=== PATIENT | male | born 1945 | race Caucasian/White ===

== ENCOUNTER 2016-12-15 15:14 | Outpatient (CLI) | payer MEDICARE, OTHER | END 2016-12-15 15:15 | disposition home or self-care (01) | DX: M06.841 Other specified rheumatoid arthritis, right hand (principal); M25.521 Pain in right elbow; M79.631 Pain in right forearm ==

== ENCOUNTER 2017-09-12 12:26 | Outpatient (CLI) | payer MEDICARE, OTHER ==
--- NOTE | 2017-09-12 21:46 | XRAY Report ---
DATE OF SERVICE: 09/12/2017 THREE VIEW BILATERAL KNEES: 09/12/2017 CLINICAL INDICATION: Pain. AP, lateral, sunrise views of the bilateral knees demonstrate minimal osteoarthritis, with tiny osteo phytes. There is no evidence of fracture or dislocation. No effusion is present on either side. IMPRESSION: Minimal osteoarthritis. TD: 09/12/2017 22:44
--- NOTE | 2017-09-12 21:46 | XRAY Report ---
DATE OF SERVICE: 09/12/2017 BILATERAL HIPS AND PELVIS: 09/12/2017 CLINICAL INDICATION: Bilateral pain. Frontal view of the hips and pelvis, and bilateral frogleg lateral views of the hips demonstrate mild osteoarthritis, with small osteophytes. There is no evidence of acute fracture or dislocation. No r adiopaque foreign body is seen in the soft tissues. IMPRESSION: Mild osteoarthritis. TD: 09/12/2017 22:43
--- NOTE | 2017-09-12 21:46 | XRAY Report ---
DATE OF SERVICE: 09/12/2017 THREE VIEW THORACIC SPINE: 09/12/2017 CLINICAL INDICATION: Pain. AP, lateral, swimmer's views of the thoracic spine demonstrate mild degenerative disk disease. There is no evidence of compression fracture or subluxation. No paraspinal hematoma is seen. IMPRESSION: Mild degenerative disk disease. TD: 09/12/2017 22:42
== END 2017-09-12 12:27 | disposition home or self-care (01) ==
LOC: DI 12:26
PROVIDERS: ATTEND Nurse Practitioner Family
DX: M51.34 Other intervertebral disc degeneration, thoracic region (principal); M16.0 Bilateral primary osteoarthritis of hip; M17.0 Bilateral primary osteoarthritis of knee
CPT/HCPCS: 72070; 73521

== ENCOUNTER 2017-11-08 16:01 | Outpatient (CLI) | payer MEDICARE ==
--- NOTE | 2017-11-09 08:59 | CT Report ---
EXAM: CT HEAD EXAM DATE: 11/08/2017 04:18 PM. 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 COMPARISON: None. TECHNIQUE: Multiaxial CT images were obtained from the foramen magnum to the vertex. Reformats: Coron al. IV contrast: None. In accordance with CT protocol optimization, one or more of the following dose reduction techniques w ere utilized for this exam: automated exposure control, adjustment of mA and/or KV based on patient s ize, or use of iterative reconstructive technique. FINDINGS: Parenchyma: Low-attenuation encephalomalacia from old infarct involving the left lentiform nucleus an d small amount of the posterior limb of the internal capsule, as well as extending to the monson radi amanda. Small amount of low-attenuation in the periventricular white matter. No acute hemorrhage, mass e ffect, or midline shift. No evidence of diffuse parenchymal volume loss. Aaron-white differentiation a ppears maintained. Extraaxial Spaces: No acute extra-axial collection. Evidence of diffuse parenchymal volume loss area in Ventricles: Mild exvacuo dilation of the left lateral ventricle. Sinuses and Orbits: Partially opacified right maxillary sinus is only partially visualized, otherwise paranasal sinuses appear fairly clear. Bones: No depressed skull fracture. Other: None. IMPRESSION: 1. No acute intracranial abnormality identified. Probable age-related diffuse parenchymal volume loss and chronic microvascular ischemic change, as well as old left-sided infarct, as described. 2. Partially opacified right maxillary sinus [facility] Referring Provider Line: [phone] SITE ID: [id number]
== END 2017-11-08 16:02 | disposition home or self-care (01) ==
LOC: DI 16:01
PROVIDERS: ATTEND Nurse Practitioner Family
DX: R51 Headache (principal); G81.91 Hemiplegia, unspecified affecting right dominant side; G44.321 Chronic post-traumatic headache, intractable; Z86.73 Personal history of transient ischemic attack (TIA), and cerebral infarction without residual deficits
CPT/HCPCS: 70450

== ENCOUNTER 2018-04-27 11:05 | Outpatient (CLI) | payer MEDICARE, OTHER | END 2018-04-27 11:06 | disposition short-term general hospital (02) | LOC: EMS 11:05 | PROVIDERS: ATTEND Surgery | DX: R26.2 Difficulty in walking, not elsewhere classified (principal); R42 Dizziness and giddiness; R53.1 Weakness; R51 Headache | CPT/HCPCS: A0425; A0427 ==

== ENCOUNTER 2018-09-27 10:16 | Outpatient (CLI) | payer MEDICARE, OTHER | END 2018-09-27 10:17 | disposition home or self-care (01) | LOC: DI 10:16 | PROVIDERS: ATTEND Internal Medicine | DX: Z53.9 Procedure and treatment not carried out, unspecified reason (principal) ==

== ENCOUNTER 2018-09-27 11:36 | Emergency (ER) | payer MEDICARE, OTHER ==
--- NOTE | 2018-09-27 11:55 | ED Physician Documentation ---
PD HPI FOCAL NEURO - Stated complaint Stated Complaint: R FACIAL DROOP - Chief complaint Chief Complaint: Neuro - History obtained from History obtained from: Patient, Family (sig other/caregiver.) - History of Present Illness Timing - onset: How many days ago (1-2 days of some increase in his baseline facial droop, and some perhaps weaker on right arm and leg, from prior CVA. Had had a chest pain episode month ago or so, without recurrence, but getting outpt adenosine stress test today in follow up of that. Tech and provider for the stress test noted him to have right facial droop, and wasn't able to articulate well that it is pre-existing, so test diverted and he was brought to the ER. Here he is able to articulate better that is from prior CVA and then his SO arrived and said was prior deficit and it does get worse when he has other stresses/infections/ etc. 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 Has had some facial rash recurrently and is broken out more this week. Has had prior various treatments and sees campus recruiting coordinator for it.) Severity of deficit: Mild Weakness: Face, Arm, Leg, Right Associated symptoms: No: Headache, Nausea / vomiting, Syncope Contributing factors: negative: Anticoagulated, Vascular dz Baseline status: positive: Cane, Other (some slow speech and memory at times.) Similar symptoms before: Diagnosis (prior CVA and gets increased weakness with illness or such at times in the past.) Review of Systems Constitutional: denies: Fever, Chills Nose: denies: Rhinorrhea / runny nose, Congestion Throat: denies: Sore throat Cardiac: denies: Chest pain / pressure, Palpitations Respiratory: denies: Dyspnea, Cough GI: denies: Abdominal Pain, Nausea, Vomiting, Diarrhea : denies: Dysuria, Frequency Skin: reports: Rash (facial) Neurologic: reports: Focal weakness (right face/arm/leg), Difficulty speaking (some expressive aphasia, mild to moderate) Immunocompromised: denies: Immunocompromised, Chemotherapy PD PAST MEDICAL HISTORY - Past Medical History Cardiovascular: Atrial fibrillation Respiratory: None Endocrine/Autoimmune: None GI: None : None HEENT: None Psych: None Musculoskeletal: None Derm: None - Past Surgical History Past Surgical History: Yes HEENT: Tonsil/Adenoidectomy - Present Medications Home Medications: Ambulatory Orders Medication Instructions Recorded Confirmed Multivitamin [Multivitamins] 01/06/13 01/07/13 Aspirin Chewable [[place] 81 mg PO DAILY 09/19/13 09/19/13 Aspirin] Ca Cmb No.1/Vit D3/B-6/FA/B12 2 each PO DAILY 09/19/13 09/19/13 [Vitamin D3 1,000 Unit Tablet] - Allergies Allergies/Adverse Reactions: Allergies Allergy/AdvReac Type Severity Reaction Status Date / Time No Known Drug Allergies Allergy Verified 09/19/13 12:13 - Living Situation Living Situation: reports: With spouse/s.o. Living Arrangement: reports: At home - Social History Does the pt smoke?: No Smoking Status: Never smoker Does the pt drink ETOH?: No Does the pt have substance abuse?: No - Immunizations Immunizations are current?: Yes - POLST Patient has POLST: No PD ED PE NORMAL - Vitals Vital signs reviewed: Yes - General General: Alert and oriented X 3, No acute distress, Well developed/nourished - HEENT HEENT: Ears normal, Pharynx benign - Neck Neck: Supple, no meningeal sign, No adenopathy - Cardiac Cardiac: RRR, No murmur - Respiratory Respiratory: No respiratory distress, Clear bilaterally - Abdomen Abdomen: Soft, Non tender - Male Male : Deferred - Rectal Rectal: Deferred - Back Back: No CVA TTP - Derm Derm: Normal color, Warm and dry, Other (facial rash on forehead and around cheeks, superficial redness and slight scaling in places, with some excoriations c/w scratching of the skin. No bacterial appearance per se.) - Extremities Extremities: No tenderness to palpate, No edema, No calf tenderness / cord - Neuro Neuro: Alert and oriented X 3. No: No motor deficit (right face, arm, leg weakness with supportive brace right ankle. No rash nor sores noted from the brace. ), Normal speech (some mild expressive aphasia) Eye Opening: Spontaneous Motor: Obeys Commands Verbal: Oriented GCS Score: 15 Results - Vitals Vitals: Vital Signs - 24 hr 09/27/18 09/27/18 09/27/18 11:43 12:10 14:00 Temperature 36.7 C Heart Rate 62 55 L 57 L Respiratory 16 24 16 Rate Blood Pressure 157/77 H 138/46 H 152/83 H O2 Saturation 96 96 100 Oxygen O2 Source Room air - Labs Labs: Laboratory Tests 09/27/18 09/27/18 09/27/18 12:55 13:22 13:22 WBC 7.5 RBC 4.59 L Hgb 14.6 Hct 41.6 L MCV 90.5 MCH 31.8 H MCHC 35.2 RDW 13.3 Plt Count 250 MPV 6.5 L Neut # (Auto) 4.5 Lymph # (Auto) 2.0 [place] # (Auto) 0.6 Eos # (Auto) 0.3 Baso # (Auto) 0.1 Absolute Nucleated RBC 0.00 Nucleated RBC % 0.0 ESR Sodium 140 Potassium 4.4 Chloride 107 Carbon Dioxide 28 Anion Gap 5.0 L BUN 15 Creatinine 0.8 Estimated GFR (MDRD) 94 Glucose 97 Calcium 9.1 Magnesium 2.1 Total Bilirubin 1.0 AST 22 ALT 16 Alkaline Phosphatase 51 Total Protein 6.6 L Albumin 3.7 Globulin 2.9 Albumin/Globulin Ratio 1.3 Lipase 33 Urine Color YELLOW Urine Clarity CLEAR Urine pH 7.5 Ur Specific [place] 1.020 Urine Protein NEGATIVE Urine Glucose (UA) NEGATIVE Urine Ketones NEGATIVE Urine Occult Blood NEGATIVE Urine Nitrite NEGATIVE Urine Bilirubin NEGATIVE Urine Urobilinogen 0.2 (NORMAL) Ur Leukocyte Esterase NEGATIVE Ur Microscopic Review NOT INDICATED Urine Culture Comments NOT INDICATED 09/27/18 13:22 WBC RBC Hgb Hct MCV MCH MCHC RDW Plt Count MPV Neut # (Auto) Lymph # (Auto) [place] # (Auto) Eos # (Auto) Baso # (Auto) Absolute Nucleated RBC Nucleated RBC % ESR 5 Sodium Potassium Chloride Carbon Dioxide Anion Gap BUN Creatinine Estimated GFR (MDRD) Glucose Calcium Magnesium Total Bilirubin AST ALT Alkaline Phosphatase Total Protein Albumin Globulin Albumin/Globulin Ratio Lipase Urine Color Urine Clarity Urine pH Ur Specific [place] Urine Protein Urine Glucose (UA) Urine Ketones Urine Occult Blood Urine Nitrite Urine Bilirubin Urine Urobilinogen Ur Leukocyte Esterase Ur Microscopic Review Urine Culture Comments - Rads (name of study) head CT Radiology: Prelim report reviewed (prior left basal gnaglia infarct. No new findings. No fleeing nor focal swelling. ) PD MEDICAL DECISION MAKING - ED course Complexity details: considered differential (no obvious signs of other infections. Has facial rash that looks like possible rosacea (though SO says it has not had clear DX and has gotten treated with various abx and lotions in the past without improvement)), d/w patient Departure - Departure Disposition: 01 Home, Self Care Clinical Impression: Right sided weakness, Facial droop Condition: Stable Record reviewed to determine appropriate education?: Yes Follow-Up: Yamil Romero MD [Primary Care Provider] - Comments: Your head CT appears no worse than usual with the prior stroke showing but no acute findings. Your basic blood count and urine test are normal. Not sure the cause of the flaring of your prior stroke symptoms with the increased facial droop. Follow-up with the eye doctor this afternoon as planned. It does not look like an obvious pinkeye or infection to me at this point. Recheck if persistent worsening symptoms. He will have to reschedule on the stress test through your primary care. Discharge Date/Time: 09/27/18 14:04
--- NOTE | 2018-09-27 12:55 | CT Report ---
Reason: increased facial droop over baseline Procedure Date: 09/27/2018 Accession Number: [id number] / [id number] Procedure: CT - Head W/O CPT Code: FULL RESULT: EXAM: CT HEAD EXAM DATE: 09/27/2018 12:40 PM. CLINICAL HISTORY: Increased facial droop over baseline. COMPARISON: 11/08/2017. TECHNIQUE: Multiaxial CT images were obtained from the foramen magnum to the vertex. Reformats: Sagittal and coronal. IV contrast: None. In accordance with CT protocol optimization, one or more of the following dose reduction techniques were utilized for this exam: automated exposure control, adjustment of mA and/or KV based on patient size, or use of iterative reconstructive technique. FINDINGS: Parenchyma: No intraparenchymal hemorrhage. No evidence of mass, midline shift, or CT findings of acute infarction. Stable old left basal ganglia/monson radiata infarct. Aaron-white differentiation is distinct. Diffuse chronic microangiopathic white matter changes are evident. Extraaxial Spaces: Normal for age. No acute subdural or epidural collections identified. Ventricles: The ventricles and cortical sulci are enlarged, consistent with age-related tissue loss. Sinuses and orbits: Imaged paranasal sinuses, orbits, and mastoids show no significant abnormality. Bones: No evidence of fracture or calvarial defect. Other: None. IMPRESSION: Generalized age-related changes and chronic left basal ganglia/ monson radiata infarct without evidence of acute intracranial abnormality. [facility]
[2018-09-27 13:20] LABS: BILIRUBIN,URINE NEGATIVE (NEGATIVE); GLUCOSE, URINE (UA) NEGATIVE (NEGATIVE); KETONES,URINE (UA) NEGATIVE (NEGATIVE); LEUKOCYTE ESTERASE, URINE NEGATIVE (NEGATIVE); NITRITE,URINE NEGATIVE (NEGATIVE); OCCULT BLOOD,URINE NEGATIVE (NEGATIVE); PH,URINE 7.5 PH (5.0-7.5); PROTEIN,URINE NEGATIVE (NEGATIVE); UROBILINOGEN,URINE 0.2 (NORMAL) E.U./dL (NORMAL)
[2018-09-27 13:23] LABS: CLARITY,URINE CLEAR (CLEAR)
[2018-09-27 13:33] LABS: BASOPHILS # (AUTO) 0.1 10^3/uL (0.0-0.1); BASOPHILS % (AUTO) 0.7 %; EOSINOPHILS # (AUTO) 0.3 10^3/uL (0.0-0.7); EOSINOPHILS % (AUTO) 4.2 %; HGB - HEMOGLOBIN 14.6 g/dL (14.0-18.0); LYMPHOCYTES % (AUTO) 26.2 %; MEAN CORPUSCULAR HEMOGLOBIN 31.8 pg (27.0-31.0); MEAN CORPUSCULAR HGB CONC 35.2 g/dL (32.0-36.0); MEAN CORPUSCULAR VOLUME 90.5 fL (80.0-94.0); MEAN PLATELET VOLUME 6.5 fL (7.4-11.4); MONOCYTES # (AUTO) 0.6 10^3/uL (0.0-1.0); MONOCYTES % (AUTO) 8.3 %; NEUTROPHILS # (AUTO) 4.5 10^3/uL (1.5-6.6); NEUTROPHILS % (AUTO) 60.6 %; PLT - PLATELET COUNT 250 10^3/uL (130-450); RED BLOOD COUNT 4.59 10^6/uL (4.70-6.10); RED CELL DISTRIBUTION WIDTH 13.3 % (12.0-15.0); WHITE BLOOD COUNT 7.5 x10^3/uL (4.8-10.8)
[2018-09-27 14:04] VITALS: BP 152/83
[2018-09-27 14:32] LABS: ALBUMIN 3.7 g/dL (3.2-5.5); ALBUMIN/GLOBULIN RATIO 1.3 (1.0-2.2); CALCIUM 9.1 mg/dL (8.5-10.3); CREATININE 0.8 mg/dL (0.6-1.2); MAGNESIUM 2.1 mg/dL (1.7-2.8); TOTAL PROTEIN 6.6 g/dL (6.7-8.2)
== END 2018-09-27 14:04 | disposition home or self-care (01) ==
LOC: ED 11:36
DX: R53.1 Weakness (principal); R29.810 Facial weakness; R21 Rash and other nonspecific skin eruption; Z86.73 Personal history of transient ischemic attack (TIA), and cerebral infarction without residual deficits; Z79.82 Long term (current) use of aspirin
CPT/HCPCS: 36415; 70450; 80053; 81001; 81003; 83690; 83735; 85025; 85651; 87086; 99283